=== PATIENT | male | born 1950 | race Caucasian/White ===

== ENCOUNTER → 2019-11-23 09:17 | Outpatient (CLI) | payer MEDICARE, OTHER, SELFPAY ==
--- NOTE | 2019-11-23 09:18 | DI.MRI.S_ITS ---
PROCEDURE: MR HEAD/BRAIN WO/W CON INDICATIONS: chronic daily headaches for years TECHNIQUE: Noncontrast axial T1 spin echo, axial T2 fast spin echo, sagittal and axial FLAIR, coronal T2 fast spin echo, axial gradient echo, axial diffusion and ADC through the brain. After the administration of contrast, axial and coronal 3D VIBE or T1 spin echo with fat saturation through the brain. COMPARISON: None. FINDINGS: Image quality: Excellent. CSF Spaces: Basal cisterns are patent. No extra-axial fluid collections. Ventricles are normal in size and shape. Brain: No midline shift. No intracranial bleeds or masses. No abnormal intracranial enhancement. The brainstem appears normal. Diffusion-weighted images demonstrate no acute ischemic insults. No chronic ischemic insults. Normal intravascular flow voids are present. Skull and face: Calvarial marrow is normal in signal. Orbits appear normal. Sinuses: Sinuses and mastoids appear clear. IMPRESSION: Mild microvascular atherosclerotic change in the deep white matter of each hemisphere but no evidence of mass, aneurysm, vascular malformation or prior stroke is found. Source of recurrent headaches is not identified. Dictated by: Joesph Gill M.D. on 11/23/2019 at 10:23 Approved by: Joesph Gill M.D. on 11/23/2019 at 10:25
== END ==
PROVIDERS: Family Provider Family Medicine; PCP Family Medicine; Visit Provider Family Medicine
DX: R51 Headache (principal)
CPT/HCPCS: 70553; A9579

== ENCOUNTER → 2022-04-03 07:53 | Outpatient (CLI) | payer MEDICARE, OTHER, SELFPAY ==
--- NOTE | 2022-04-23 09:11 | PM.CARDMON.1 ---
Community Education Coordinator Report Referral & Results Date Patient Seen: 04/03/22 Requesting provider: Yordan Bauer Indication: Palpitations Duration of monitoring (days): 14 Diary information: There were no patient events to review Data: Minimum heart rate identified was 30 beats per minute at 00:22 on 04/12/2022 Maximum sinus heart rate was 151 beats per minute at 15:04 on 04/07/2022 Maximum overall heart rate was 179 beats per minute at 16:47 on 04/09/2022 during a run of SVT Less than 1% of identified beats were ventricular or supraventricular ectopic in origin, which would classify them as rare. There were 30 runs of SVT with the fastest being 6 beat run as noted above, the longest was 17.3 seconds in duration There was 1 run of nonsustained monomorphic ventricular tachycardia that was 5 beats in duration at a rate of 126 beats per minute There were no pauses of 3 seconds or longer or episodes of atrial fibrillation identified on this study Impression: 14 day phototypesetting equipment monitor showing rare ectopy as well as rare brief runs of SVT as above and the single run of VT No symptoms reported to correlate with sense of palpitations Clinical correlation suggested
== END ==
PROVIDERS: Family Provider Family Medicine; PCP Family Medicine; Referring Provider Family Medicine; Visit Provider Family Medicine
DX: R00.2 Palpitations (principal)
CPT/HCPCS: 93246; 93248

== ENCOUNTER 2022-04-23 22:02 | Emergency (ER) | payer MEDICARE, OTHER, SELFPAY ==
[2022-04-23 22:10] VITALS: BP 126/90; PULSE 132; RESP 18; TEMP 36.5; O2SAT 99; BMI 27.8
[2022-04-23 22:12] VITALS: PULSE 131; RESP 21; O2SAT 99
[2022-04-23 22:17] VITALS: BP 161/92; PULSE 136; RESP 20; O2SAT 99
--- NOTE | 2022-04-23 22:18 | ED.ARRPALP ---
HPI - Arrhythmia/Palpitations General Chief Complaint: Arrhythmia/Palpitations Stated Complaint: states a fib Time Seen by Provider: 04/23/22 22:11 Source: patient Mode of arrival: Ambulatory History of Present Illness HPI narrative: [age] year old male who has had issues with palpitations in the past. Has had a Holter monitor. There was strong concern that he was having episodes of atrial fibrillation but there was no documented arrhythmias with this. He stated that he started to have a fast heart rate just over an hour ago. He denies chest pain, shortness of breath, lightheadedness. He states that he normally has episodes like this and he will either try some deep breathing ago for brisk walk or climb up and down some stairs and at resolves. Today it did seem to last longer than normal and he would like to come in for an EKG to document the rhythm that he is in. Related Data Home Medications Medication Instructions Recorded Confirmed VITAMIN D (Vitamin D3) 2,000 units PO QDAY ##0 10/14/17 01/19/20 siawnmz-eluzmqkxogjyh-fvzedrgg 250 tab PO PRN PRN ##0 10/14/17 01/19/20 mg-250 mg-65 mg tablet (Excedrin Extra Strength) multivitamin (Multiple Vitamins 1 tab PO QDAY ##0 10/14/17 01/19/20 tablet) omega 6-hqq-vhi-fish oil 1,000 mg 1,200 mg PO QDAY ##0 10/14/17 01/19/20 (120 mg-180 mg) capsule (Fish Oil) levothyroxine 25 mcg capsule 25 mcg PO DAILY 08/04/19 01/19/20 omeprazole 20 mg capsule,delayed 20 mg PO DAILY 08/04/19 01/19/20 release [facility] PO BID 08/04/19 01/19/20 Previous Rx's Medication Instructions Recorded sumatriptan succinate 100 mg tablet 100 mg PO .COMPLEX PRN migraine 06/14/19 headache #18 tabs naratriptan 2.5 mg tablet 2.5 mg PO .COMPLEX PRN migraine 07/20/19 headache #18 tabs naratriptan 2.5 mg tablet See Rx Instructions PO .COMPLEX 08/04/19 #14 tabs sumatriptan succinate 100 mg tablet See Rx Instructions PO .COMPLEX 08/04/19 #14 tabs naratriptan 2.5 mg tablet 2.5 mg PO Q4H PRN migraine 11/17/19 headache #45 tabs sumatriptan succinate 100 mg tablet 100 mg PO Q2-4H PRN migraine 11/17/19 headache 2 doses #45 tabs naratriptan 2.5 mg tablet 2.5 mg PO Q4H PRN migraine 01/19/20 headache #30 tabs sumatriptan succinate 100 mg tablet 100 mg PO Q2-4H PRN migraine 01/19/20 headache 2 doses #30 tabs ubrogepant 50 mg tablet 50 mg PO ONCE #10 tabs 01/19/20 Allergies Allergy/AdvReac Type Severity Reaction Status Date / Time No Known Drug Allergies Allergy Verified 11/17/19 09:02 Review of Systems Constitutional Constitutional: Reports system reviewed and no additional complaints, except as documented Cardiovascular Cardiovascular: Denies chest pain at rest, Reports rapid heart rate, Reports irregular heart rhythm and Denies dyspnea Respiratory Respiratory: Denies cough and Denies dyspnea Gastrointestinal Gastrointestinal: Reports system reviewed and no additional complaints, except as documented Integumentary/Breasts Skin/Breast: Reports system reviewed and no additional complaints, except as documented Neurologic Neurologic: Reports system reviewed and no additional complaints, except as documented Hematologic/Lymphatic On Anticoagulants: No Patient History Medical History Headache, chronic daily Umbilical hernia without mention of obstruction or gangrene Surgical History (Updated 11/17/19 @ 09:03 by Kate Martinez) History of cataract surgery History of hernia repair Family History (Updated 11/17/19 @ 09:05 by Kate Martinez) Brother Cancer Mother Dementia Social History Smoking Status: Never smoker Smoking Status: Never smoker alcohol intake frequency: 0-2 drinks per day Substance Use Type: does not use Exam Initial Vital Signs Initial Vital Signs: Vital Signs Temperature 97.7 F 04/23/22 22:10 Pulse Rate 132 H 04/23/22 22:10 Respiratory Rate 18 04/23/22 22:10 Blood Pressure 126/90 04/23/22 22:10 Pulse Oximetry 99 04/23/22 22:10 Oxygen Delivery Method 04/23/22 22:10 Const General: cooperative, comfortable, well developed, well groomed and No ill appearing HENW[place] Head: normal to inspection and normocephalic Resp Effort & Inspection: normal respiratory effort Auscultation: clear to auscultation bilaterally, no rhonchi and no wheezes Cardio Rate: tachycardic Rhythm: abnormal rhythm GI Inspection: normal to inspection Neuro General: patient alert, patient awake, patient oriented x3 and moves all extremities Extrem General: No edema Psych Appearance: grossly normal Course Orders Ordered: ED Orders 04/23/22 22:13 Basic Metabolic Panel Stat COVID19 -Nasal RAPID/Pre-Proc Stat Complete Blood Count AUTO DIFF Stat Magnesium Stat Thyroid Stimulating Hormone Stat EKG-12 Lead Stat 04/23/22 22:53 EKG-12 Lead Stat 04/23/22 22:54 EKG-12 Lead Stat Discontinued Medications Metoprolol Tartrate (Metoprolol Tartrate 5 Mg/5 Ml Inj) 5 mg IV NOW ONE Stop: 04/23/22 22:19 Last Admin: 04/23/22 22:27 Dose: 5 mg Documented By: LETY Vital Signs Vital signs: Vital Signs - 8 hr 04/23/22 22:10 04/23/22 22:12 04/23/22 22:17 Temperature 97.7 F Pulse Rate 132 H 131 H 136 H Respiratory Rate 18 21 20 Blood Pressure 126/90 Pulse Oximetry 99 99 99 Oxygen Delivery Method Room Air 04/23/22 22:17 04/23/22 22:30 04/23/22 22:30 Temperature Pulse Rate 113 H Respiratory Rate 9 L Blood Pressure 161/92 H 147/75 H Pulse Oximetry 97 Oxygen Delivery Method 04/23/22 23:00 04/23/22 23:01 04/23/22 23:01 Temperature Pulse Rate 54 L 54 L Respiratory Rate 25 H 26 H Blood Pressure 151/91 H Pulse Oximetry 96 97 Oxygen Delivery Method Room Air MDM - Arrhythmia/Palpitations Medical Records Attestation: I reviewed the patient's medical records. Lab Data Attestation: I reviewed the patient's lab results. Result diagrams: 04/23/22 22:13 04/23/22 22:13 Labs: Lab Results 04/23/22 04/23/22 04/23/22 Range/Units 22:13 22:13 22:13 WBC 6.8 (4.5-11.0) X10^3/uL RBC 4.63 (4.5-5.9) X10^6/uL Hgb 14.0 (13.5-17.5) g/dL Hct 40.0 L (41-53) % MCV 86.5 (80-100) fL MCH 30.3 (26-34) PG MCHC 35.0 (30-36) % RDW 13.3 (11.6-14.8) % Plt Count 212 (150-400) X10^3/uL Neut % (Auto) 56.9 (50-75) % Lymph % (Auto) 29.4 (25-40) % [place] % (Auto) 8.9 (3-14) % Eos % (Auto) 3.6 (2-4) % Baso % (Auto) 1.2 (0-2) % Neut # (Auto) 3900 (4319-9474) /uL Lymph # (Auto) 2000 (2783-5686) /uL [place] # (Auto) 600 (0-900) /uL Eos # (Auto) 200 (0-450) /uL Baso # (Auto) 100 (0-100) /uL Sodium 139 (137-145) mmol/L Potassium 3.8 (3.4-5.1) mmol/L Chloride 103 (98-107) mmol/L Carbon Dioxide 29 (22-32) mmol/L BUN 16 (9-20) mg/dL Creatinine 0.85 (0.66-1.25) mg/dL Estimated GFR > 60 (>60) mL/min BUN/Creatinine Ratio 18.8 (6-22) Glucose 134 H (80-110) mg/dL Calcium 9.0 (8.4-10.2) mg/dL Magnesium 2.2 (1.6-2.3) mg/dL TSH 2.19 (0.47-4.68) uIU/mL SARS-CoV-2 (PCR) (Negative) 04/23/22 Range/Units 22:13 WBC (4.5-11.0) X10^3/uL RBC (4.5-5.9) X10^6/uL Hgb (13.5-17.5) g/dL Hct (41-53) % MCV (80-100) fL MCH (26-34) PG MCHC (30-36) % RDW (11.6-14.8) % Plt Count (150-400) X10^3/uL Neut % (Auto) (50-75) % Lymph % (Auto) (25-40) % [place] % (Auto) (3-14) % Eos % (Auto) (2-4) % Baso % (Auto) (0-2) % Neut # (Auto) (6094-7992) /uL Lymph # (Auto) (9287-6768) /uL [place] # (Auto) (0-900) /uL Eos # (Auto) (0-450) /uL Baso # (Auto) (0-100) /uL Sodium (137-145) mmol/L Potassium (3.4-5.1) mmol/L Chloride (98-107) mmol/L Carbon Dioxide (22-32) mmol/L BUN (9-20) mg/dL Creatinine (0.66-1.25) mg/dL Estimated GFR (>60) mL/min BUN/Creatinine Ratio (6-22) Glucose (80-110) mg/dL Calcium (8.4-10.2) mg/dL Magnesium (1.6-2.3) mg/dL TSH (0.47-4.68) uIU/mL SARS-CoV-2 (PCR) Negative (Negative) ECG Data Attestation: I personally reviewed and interpreted this ECG as follows: Interpretation: Atrial fibrillation Rapid ventricular response with a rate of 126 Normal axis Normal QRS No ST T wave changes Post cardioversion EKG Sinus bradycardia Ventricular rate of 54 Normal axis Normal QRS Normal QTC LDH No ST T wave changes MDM Narrative Medical decision making narrative: Patient arrives with stable atrial fibrillation. And discussion with him regarding options to include rate control versus rhythm control. The patient stated that he would like to actually wait to see if he would convert on his own as this has been his pattern in the past. He was agreeable to 1 dose of medication to see if this improved his palpitations. He was given metoprolol and after short period of time patient converted to sinus rhythm. Patient states that his heart rate is normally in the 50s or 60s. He is no longer symptomatic. He states these events only occur rarely meaning once every other month or so. Advised him that he should contact his primary doctor for follow-up. He was given return precautions. Expressed understanding and agreement. Discharge Plan Departure Patient Disposition: Home Clinical Impression: Atrial fibrillation Instructions: DI for Atrial Fibrillation Activity Restrictions/Additional Instructions: I do recommend that you contact your primary doctor for a follow-up. Return to the emergency department for any new or worsening symptoms like we discussed. Prescriptions: No Action multivitamin [Multiple Vitamins] 1 EACH tablet 1 tab PO QDAY Qty: 0 raauvpj-lkvmrciztowbv-ykyjnlzo [Excedrin Extra Strength] 1 EACH tablet PO PRN PRNQty: 0 omega 8-bmr-myd-fish oil [Fish Oil] 1,000 MG capsule 1,200 mg PO QDAY Qty: 0 VITAMIN D (Vitamin D3) 2,000 units PO QDAY Qty: 0 sumatriptan succinate 100 mg tablet 100 mg PO .COMPLEX PRN (Reason: migraine headache) Qty: 18 1RF Rx Instructions: 100 mg PO 1 at onset, may repeat after 2 hours. PRN; naratriptan 2.5 mg tablet 2.5 mg PO .COMPLEX PRN (Reason: migraine headache) Qty: 18 1RF Rx Instructions: 2.5 mg PO 1 at onset, may repeat after 2 hours. PRN; levothyroxine 25 mcg capsule 25 mcg PO DAILY omeprazole 20 mg capsule,delayed release(DR/EC) 20 mg PO DAILY [facility] PO BID naratriptan 2.5 mg tablet See Rx Instructions PO .COMPLEX Qty: 14 5RF Rx Instructions: take 1 tab at onset of headache; if no relief may repeat 1 tab in 4hr; max = 2 tabs/24 hrs PO sumatriptan succinate 100 mg tablet See Rx Instructions PO .COMPLEX Qty: 14 5RF Rx Instructions: take 1 tab at onset of headache; if no relief may repeat 1 tab in 2hr; max = 2 tabs/24 hrs PO naratriptan 2.5 mg tablet 2.5 mg PO Q4H PRN (Reason: migraine headache) Qty: 45 1RF Rx Instructions: until response; not to exceed 2 doses in a 24 hour period sumatriptan succinate 100 mg tablet 100 mg PO Q2-4H PRN (Reason: migraine headache) Qty: 45 1RF naratriptan 2.5 mg tablet 2.5 mg PO Q4H PRN (Reason: migraine headache) Qty: 30 2RF Rx Instructions: do not exceed 2 doses per 24 hrs sumatriptan succinate 100 mg tablet 100 mg PO Q2-4H PRN (Reason: migraine headache) Qty: 30 2RF Rx Instructions: do not exceed 2 doses per 24 hrs ubrogepant 50 mg tablet 50 mg PO ONCE Qty: 10 2RF Rx Instructions: as a single dose Referrals: Yordan Bauer MD [Primary Care Provider] - Visit Report Forms: Patient Portal/API
[2022-04-23 22:26] LABS: Add Manual Diff / Slide Review NO; Basophils Absolute Auto 100 /uL (0-100); Basophils Percent Auto 1.2 % (0-2); Eosinophils Absolute Auto 200 /uL (0-450); Eosinophils Percent Auto 3.6 % (2-4); Lymphocytes Absolute Auto 2000 /uL (1100-4500); Lymphocytes Percent Auto 29.4 % (25-40); Mean Corpuscular Hemoglobin 30.3 PG (26-34); Mean Corpuscular Volume 86.5 fL (80-100); Monocytes Absolute Auto 600 /uL (0-900); Monocytes Percent Auto 8.9 % (3-14); Neutrophils Absolute Auto 3900 /uL (1500-7000); Neutrophils Percent Auto 56.9 % (50-75); Platelet Count 212 X10^3/uL (150-400); Red Blood Cell Count 4.63 X10^6/uL (4.5-5.9); Red Cell Distribution Width 13.3 % (11.6-14.8); White Blood Cell Count 6.8 X10^3/uL (4.5-11.0)
[2022-04-23] MEDS: METOPROLOL TARTRATE 5 MG/5 ML INJ IV (22:27)
[2022-04-23 22:30] VITALS: BP 147/75; PULSE 113; RESP 9; O2SAT 97
[2022-04-23 22:44] LABS: COVID19 -Nasal RAPID Negative (Negative)
--- NOTE | 2022-04-23 22:44 | PC.NURSE ---
2242 pt converted to SR rate 52
[2022-04-23 22:55] LABS: BUN Creatinine Ratio 18.8 (6-22); Blood Urea Nitrogen 16 mg/dL (9-20); Carbon Dioxide 29 mmol/L (22-32); Chloride 103 mmol/L (98-107); Estimated Glomerular Filt Rate > 60 mL/min (>60); Glucose 134 mg/dL (80-110); HEMOLYSIS 16 (0-50); Magnesium 2.2 mg/dL (1.6-2.3); Potassium 3.8 mmol/L (3.4-5.1); Sodium 139 mmol/L (137-145)
[2022-04-23 23:00] VITALS: PULSE 54; RESP 25; O2SAT 96
[2022-04-23 23:01] VITALS: BP 151/91; PULSE 54; RESP 26; O2SAT 97
[2022-04-24 00:06] LABS: Thyroid Stimulating Hormone 2.19 uIU/mL (0.47-4.68)
== END 2022-04-23 23:12 | disposition home or self-care (01) ==
PROVIDERS: Emergency Provider Emergency Medicine; Family Provider Family Medicine; PCP Family Medicine
DX: I48.91 Unspecified atrial fibrillation (principal); Z20.822 Contact with and (suspected) exposure to COVID-19
CPT/HCPCS: 36415; 80048; 83735; 84443; 85025; 87635; 93005; 93010; 96374; 99284; C9803

== ENCOUNTER → 2022-07-16 08:05 | Outpatient (CLI) | payer MEDICARE, OTHER, SELFPAY ==
--- NOTE | 2022-07-16 08:07 | DI.ECHO.S_ITS ---
[facility] +---------+ : : [address] : : : : [id number] : : : : Phone: [phone]+ Echocardiogram Report + + :Name: DINH LOPEZ Study Date: 07/16/2022 Height: 71 in : :[facility] ReadingLocation: Weight: 195 lb : : Gender: Male BSA: 2.1 m2 : :: 1950 Age: 72 yrs BP: 156/93 mmHg: :Reason For Study: ATRIAL FIBRILLATION : :Ordering Physician: DONOVAN, : :REGGIE Performed By: Emily Quesada : :Referring: REGGIE MAN : + + Interpretation Summary The patient was in sinus bradycardia with heart rates between 48-55 bpm during the exam. The left ventricle is normal in size. There is mild concentric left ventricular hypertrophy. The ejection fraction is estimated to be 55-60%. The right ventricle is normal in size and function. There is mild mitral regurgitation. The ascending aorta is mild-moderately enlarged. 4.3 cm in diameter. Procedure: A two-dimensional transthoracic echocardiogram with color flow and Doppler was performed. The study quality was technically adequate. There is no prior echocardiogram noted for this patient. The patient was in sinus bradycardia with heart rates between 48-55 bpm during the exam. Left Ventricle: The left ventricle is normal in size. There is mild concentric left ventricular hypertrophy. There is no thrombus. The ejection fraction is estimated to be 55-60%. There are no focal wall motion abnormalities. Diastolic parameters suggest a relaxation abnormality of the left ventricle, consistent with probable normal filling pressures. Right Ventricle: The right ventricle is normal in size and function. Atria: The left atrium is mildly dilated. Right atrial size is normal. There is no Doppler evidence for an interatrial shunt. Mitral Valve: The mitral valve leaflets are slightly calcified. There is mild mitral regurgitation. Aortic Valve: The aortic valve is trileaflet. The aortic valve opens well. There is no aortic valve stenosis. No aortic regurgitation is present. Tricuspid Valve: The tricuspid valve is normal in structure and function. There is trace tricuspid regurgitation. Right ventricular systolic pressure is estimated to be 26 mmHg plus the clinically estimated CVP which cannot be estimated on this exam. Pulmonic Valve: The pulmonic valve is not well seen, but is grossly normal. There is trace pulmonic regurgitation. Great Vessels: The aortic root is normal size. The ascending aorta is mild- moderately enlarged. The inferior vena cava was not well visualized. Pericardium/ Pleura There is no pericardial effusion. There is an anterior echo-free space consistent with a fat pad. There is no pleural effusion. MMode/2D Measurements & Calculations LVIDd: 4.5 cm LVOT diam: 2.0 cm LVIDs: 3.1 cm Ao root diam: 3.6 cm FS: 31.3 % asc Aorta Diam: 4.3 cm EPSS: 1.1 cm Ao Arch Diam (Prox Trans): 3.6 cm IVSd: 1.1 cm LVPWd: 0.86 cm LV dominguez. diameter/BSA (cm/m^2): 2.1 LV sys. diameter/BSA (cm/m^2): 1.5 LA A2 area: 26.0 cm2 RA long axis: 5.0 cm LA A4 area: 20.4 cm2 RA area: 17.9 cm2 LA length (vol): 5.5 cm RA vol: 53.9 ml LA vol: 81.9 ml RA : 25.8 ml/m2 LA vol index: 39.2 ml/m2 RVD1 (basal): 3.5 cm RVD2 (mid): 3.4 cm TAPSE: 1.8 cm Doppler Measurements & Calculations Ao V2 max: 123.5 cm/sec LVOT Max Sean: 123.0 cm/sec Ao V2 mean: 86.9 cm/sec LV V1 max P.1 mmHg Ao max P.1 mmHg LV V1 VTI: 29.4 cm Ao mean P.3 mmHg LYNETTE(I,D): 3.0 cm2 Ao V2 VTI: 30.8 cm LYNETTE(V,D): 3.1 cm2 sev ratio: 0.96 LYNETTE indexed to BSA (cm^2/m^2): 1.4 MV E max sean: 83.4 cm/sec TR max sean: 252.4 cm/sec MV A max sean: 89.2 cm/sec TR max P.5 mmHg MV E/A: 0.94 PA V2 max: 151.6 cm/sec Med Peak E' Sean: 9.2 cm/sec PA V2 mean: 92.8 cm/sec E/E' med: 9.1 PA mean P.1 mmHg Lat Peak E' Sean: 10.4 cm/sec PA pr(Accel): 20.8 mmHg E/E' lat: 8.0 E/e' average: 8.5 MV dec time: 0.19 sec SV(LVOT): 92.8 ml Reading Physician:02:00 PM
== END ==
PROVIDERS: Family Provider Family Medicine; PCP Family Medicine; Referring Provider Family Medicine; Visit Provider Family Medicine
DX: I48.91 Unspecified atrial fibrillation (principal); R00.1 Bradycardia, unspecified; I77.89 Other specified disorders of arteries and arterioles
CPT/HCPCS: 93306

== ENCOUNTER → 2022-10-13 06:48 | Outpatient (CLI) | payer MEDICARE, OTHER, SELFPAY ==
--- NOTE | 2022-10-13 06:50 | DI.US.S_ITS ---
PROCEDURE: US ABD AORTA ANEURYSM SCREEN INDICATIONS: Screening for cardiovascular disorder TECHNIQUE: Real time scanning was performed of the aorta and iliac arteries, with image documentation. COMPARISON: None. FINDINGS: Aorta: Proximal aortic diameter measures 2.9 cm. Mid-aorta measures 2.7 cm. Distal aortic diameter is 2.4 cm. Iliac arteries: Right common iliac artery measures 1.3 cm. Left common iliac artery measures 1.4 cm. IMPRESSION: No aneurysmal dilation. Dictated by: Emma Sanchez M.D. on 10/13/2022 at 11:34 Approved by: Emma Sanchez M.D. on 10/13/2022 at 11:34
== END ==
PROVIDERS: Family Provider Family Medicine; PCP Family Medicine; Referring Provider Family Medicine; Visit Provider Family Medicine
DX: Z13.6 Encounter for screening for cardiovascular disorders (principal)
CPT/HCPCS: 76706

== ENCOUNTER → 2023-11-23 08:56 | Outpatient (CLI) | payer MEDICARE, BC, SELFPAY ==
--- NOTE | 2023-11-23 | DI.CT.S_ITS ---
PROCEDURE: CT ABDOMEN PELVIS W CON INDICATIONS: EPIGASTRIC PAIN TECHNIQUE: After the administration of intravenous contrast, axial sections acquired from the lung bases to the pubic symphysis. Coronal and sagittal reformats were performed. For radiation dose reduction, the following was used: automated exposure control, adjustment of mA and/or kV according to patient size. COMPARISON: None. FINDINGS: Image quality: Diagnostic. Lower Chest: There is a 0.7 cm nodule in the right middle lobe (series 3 image 2). A 3 mm nodule is seen in the left lower lobe series 3 image 4). Small hiatal hernia. ABDOMEN: Liver: No solid mass. There is mild hepatic steatosis. Gallbladder: No radiopaque gallstones or wall thickening. Biliary ducts: No biliary dilation. Pancreas: No ductal dilation. Spleen: Size is within normal limits. Adrenal Glands: No adrenal nodules. Kidneys and Ureters: No hydronephrosis. No solid mass. No complex renal cystic lesion which requires follow up. Stomach and Bowel: There may be gastric antral thickening but stomach is not fully distended. Normal colonic caliber, without significant wall thickening. Diverticulosis without diverticulitis. Peritoneum: No abnormal intraperitoneal fluid. No free air. Ventral Wall: No hernia. Abdominal Nodes: No retroperitoneal or mesenteric adenopathy by size criteria. Vessels: Aorta and inferior vena cava are normal in size. PELVIS: Pelvic Organs: Prostate is enlarged.. Bladder: Unremarkable. Pelvic Nodes: No enlarged lymph nodes. Miscellaneous: No inguinal hernias are seen. Bones: No aggressive osseous abnormality. Moderate degenerative disc and facet disease at L5-S1. A sclerotic focus in the left ischium is most likely a small bone island. IMPRESSION: 1. Question gastric antral thickening. A differential diagnosis is inadequate distension. 2. Mild hepatic steatosis. 3. Diverticulosis without diverticulitis. 4. Small lung nodules at lung bases. Recommend a chest CT for follow-up evaluation. Dictated by: Johana Funk M.D. on 11/23/2023 at 14:13 Approved by: Johana Funk M.D. on 11/23/2023 at 14:19
== END ==
PROVIDERS: Family Provider Family Medicine; PCP Family Medicine; Referring Provider Family Medicine; Visit Provider Family Medicine
DX: K76.0 Fatty (change of) liver, not elsewhere classified (principal); K57.90 Diverticulosis of intestine, part unspecified, without perforation or abscess without bleeding; R10.13 Epigastric pain; R91.8 Other nonspecific abnormal finding of lung field; K44.9 Diaphragmatic hernia without obstruction or gangrene
CPT/HCPCS: 74177; Q9967

== ENCOUNTER 2024-04-29 03:16 | Emergency (ER) | payer MEDICARE, BC, SELFPAY ==
[2024-04-29] VITALS (8 sets, daily range): BP systolic 92–123; BP diastolic 53–74; PULSE 51–71; RESP 12–19; TEMP 36.4–36.8; O2SAT 94–100; BMI 59.9
--- NOTE | 2024-04-29 03:36 | EKG_ITS ---
[facility] [address] [address] [address], [place] [address] Test Date: 2024-04-29 Pat Name: Isra Elliott Department: Room: Gender: Male Pen Tender: SYLVESTER : 1950 Requested By: Order Number: [id number] Reading MD: Adalid Martinez Measurements Intervals [place] Rate: 60 P: HI: QRS: -4 QRSD: 86 T: 5 QT: 398 QTc: 398 Interpretive Statements atrial fibrillation Electronically Signed On 04-29-2024 16:21:25 PDT by Adalid Martinez
--- NOTE | 2024-04-29 03:57 | ED_ITS ---
HPI - Abdominal Pain General Chief Complaint: Abdominal Pain Stated Complaint: abd pain Time Seen by Provider: 04/29/24 03:55 Source: patient Mode of arrival: Ambulatory Limitations: no limitations History of Present Illness HPI narrative: 74-year-old male history of chronic abdominal, migraines, atrial fibrillation, hypothyroidism presents with complaint epigastric upper abdominal pain that radiates to both scapulas. Patient states that this has been going on for some time episodic but has become more more frequent over time. He states typically last 7-8 hours. He states he has not had any fevers or chills, no chest pain or shortness of breath. No nausea or vomiting. No issues with bowel movements no issues with urination. He states he is stooling regularly. He did have an EGD and colonoscopy earlier in the day on 04/28 at 4:30 a.m. in the afternoon. He states he tolerated that well and felt fine until 130 this morning. States the only thing that seems to help his symptoms as when he holds himself and a plank position. He did take several tablets of antacids and Pepto-Bismol without any improvement at home. He has been following with his regular doctor he has had an MRA to rule out aneurysm, and then had an EGD and colonoscopy earlier in the day. Was found to have a tumor body still as well as cecal polyps that were 7 mm and 5 mm and diverticulosis. Patient states no other surgeries besides cataract umbilical hernia 2015. No drug allergies. No tobacco, alcohol or recreational drugs. Patient's primary care physician is Dr. Bauer. He presented with his summary from his colonoscopy and EGD. Patient's was noted to be AFib or went into AFib during his scope. He was rate controlled and asymptomatic and encouraged to continue his metoprolol. Related Data Home Medications Medication Instructions Recorded Confirmed VITAMIN D (Vitamin D3) 2,000 units PO QDAY ##0 10/14/17 01/19/20 qsefpyo-pbzjhmwznwptf-uhqbidux 250 tab PO PRN PRN ##0 10/14/17 01/19/20 mg-250 mg-65 mg tablet (Excedrin Extra Strength) multivitamin (Multiple Vitamins 1 tab PO QDAY ##0 10/14/17 01/19/20 tablet) omega 8-pou-ntd-fish oil 1,000 mg 1,200 mg PO QDAY ##0 10/14/17 01/19/20 (120 mg-180 mg) capsule (Fish Oil) levothyroxine 25 mcg capsule 25 mcg PO DAILY 08/04/19 01/19/20 omeprazole 20 mg capsule,delayed 20 mg PO DAILY 08/04/19 01/19/20 release [facility] PO BID 08/04/19 01/19/20 Previous Rx's Medication Instructions Recorded sumatriptan succinate 100 mg tablet 100 mg PO .COMPLEX PRN migraine 06/14/19 headache #18 tabs naratriptan 2.5 mg tablet 2.5 mg PO .COMPLEX PRN migraine 07/20/19 headache #18 tabs naratriptan 2.5 mg tablet See Rx Instructions PO .COMPLEX 08/04/19 #14 tabs sumatriptan succinate 100 mg tablet See Rx Instructions PO .COMPLEX 08/04/19 #14 tabs naratriptan 2.5 mg tablet 2.5 mg PO Q4H PRN migraine 11/17/19 headache #45 tabs sumatriptan succinate 100 mg tablet 100 mg PO Q2-4H PRN migraine 11/17/19 headache 2 doses #45 tabs naratriptan 2.5 mg tablet 2.5 mg PO Q4H PRN migraine 01/19/20 headache #30 tabs sumatriptan succinate 100 mg tablet 100 mg PO Q2-4H PRN migraine 01/19/20 headache 2 doses #30 tabs ubrogepant 50 mg tablet 50 mg PO ONCE #10 tabs 01/19/20 Allergies Allergy/AdvReac Type Severity Reaction Status Date / Time No Known Drug Allergies Allergy Verified 11/17/19 09:02 Review of Systems Review of Systems ROS Unobtainable: All systems reviewed & are unremarkable except as noted in HPI and below Patient History Medical History Headache, chronic daily Umbilical hernia without mention of obstruction or gangrene Surgical History History of hernia repair History of cataract surgery Family History Brother Cancer Mother Dementia Social History Smoking Status: Never smoker Smoking Status: Never smoker alcohol intake frequency: 0-2 drinks per day Substance Use Type: does not use Exam Narrative Exam Narrative: GENERAL: Alert and oriented x three, well-appearing male in mild distress. HEENT: Head normocephalic, atraumatic, EOMI, pupils reactive, face symmetric, moist mucous membranes NECK: Supple, full range of motion CARDIOVASCULAR: Regular rate and rhythm without murmurs, rubs or gallops. RESPIRATORY: Breath sounds equal bilaterally, no wheezes rales or rhonchi. ABDOMEN: Soft, nontender on examination. I am not able to increase or reproduce his pain. Non-distended. Normoactive bowel sounds all 4 quadrants. No guarding or rebound, rigidity, no mass : No CVA tenderness EXTREMITIES: Normal range of motion, no clubbing or edema. Neurovascularly intact NEUROLOGICAL: Cranial nerves II through XII grossly intact. Moving all extremities SKIN: Warm, dry, no petechiae, no rashes or lesions. Initial Vital Signs Initial Vital Signs: Vital Signs Pulse Rate 62 04/29/24 03:24 Respiratory Rate 14 04/29/24 03:24 Blood Pressure 92/53 L 04/29/24 03:24 Pulse Oximetry 94 04/29/24 03:24 Course Orders Ordered: ED Orders 04/29/24 03:36 EKG-12 Lead Stat 04/29/24 03:45 Complete Blood Count AUTO DIFF Stat Comprehensive Metabolic Panel Stat Lipase Stat Troponin & CK Cardiac Panel Stat 04/29/24 04:09 CT abdomen pelvis w con Stat Discontinued Medications Al Hydrox/Mg Hydrox/Simethicone 20 ml/ Lidocaine HCl 15 ml 0 ml PO NOW ONE Stop: 04/29/24 04:09 Last Admin: 04/29/24 04:27 Dose: 35 ml Documented By: JULY Ondansetron HCl (Ondansetron 4 Mg/2 Ml Inj) 4 mg IV NOW PRN PRN Reason: Nausea And Vomiting Ondansetron HCl (Ondansetron 4 Mg Odt) 4 mg PO NOW PRN PRN Reason: Nausea And Vomiting Pantoprazole Sodium (Pantoprazole 40 Mg Vial) 40 mg IV NOW ONE Stop: 04/29/24 04:09 Last Admin: 04/29/24 04:28 Dose: 40 mg Documented By: JULY Vital Signs Vital signs: Vital Signs - 8 hr 04/29/24 03:24 04/29/24 03:24 04/29/24 03:25 Temperature 98.3 F Pulse Rate 62 56 L Respiratory Rate 14 12 Blood Pressure 92/53 L 92/53 L Pulse Oximetry 94 99 Oxygen Delivery Method Room Air 04/29/24 03:30 04/29/24 04:00 04/29/24 04:38 Temperature Pulse Rate 63 71 62 Respiratory Rate 13 19 Blood Pressure Pulse Oximetry 99 100 99 Oxygen Delivery Method 04/29/24 04:38 04/29/24 05:00 04/29/24 05:00 Temperature Pulse Rate 58 L Respiratory Rate Blood Pressure 123/74 112/64 Pulse Oximetry 97 Oxygen Delivery Method 04/29/24 05:30 04/29/24 05:30 04/29/24 06:08 Temperature 97.6 F Pulse Rate 51 L Respiratory Rate Blood Pressure 109/69 Pulse Oximetry 100 Oxygen Delivery Method MDM - Abdominal Pain Lab Data 04/29/24 03:45 04/29/24 03:45 Labs: Lab Results 04/29/24 Range/Units 03:45 WBC 6.7 (4.5-11.0) X10^3/uL RBC 4.35 L (4.5-5.9) X10^6/uL Hgb 13.1 L (13.5-17.5) g/dL Hct 38.3 L (41-53) % MCV 87.9 (80-100) fL MCH 30.0 (26-34) PG MCHC 34.2 (30-36) % RDW 13.6 (11.6-14.8) % Plt Count 194 (150-400) X10^3/uL Neut % (Auto) 66.0 (50-75) % Lymph % (Auto) 22.7 L (25-40) % Mcpherson % (Auto) 8.3 (3-14) % Eos % (Auto) 2.5 (2-4) % Baso % (Auto) 0.5 (0-2) % Neut # (Auto) 4400 (7022-1969) /uL Lymph # (Auto) 1500 (1138-4193) /uL Mcpherson # (Auto) 600 (0-900) /uL Eos # (Auto) 200 (0-450) /uL Baso # (Auto) 0 (0-100) /uL Sodium 138 (137-145) mmol/L Potassium 3.9 (3.4-5.1) mmol/L Chloride 107 (98-107) mmol/L Carbon Dioxide 30 (22-32) mmol/L BUN 18 (9-20) mg/dL Creatinine 0.91 (0.66-1.25) mg/dL Estimated GFR > 60 (>60) mL/min BUN/Creatinine Ratio 19.8 (6-22) Glucose 125 H (80-110) mg/dL Calcium 8.6 (8.4-10.2) mg/dL Total Bilirubin 0.5 (0.2-1.3) mg/dL AST 37 (17-59) IU/L ALT 32 (<50) IU/L Alkaline Phosphatase 68 (38-126) U/L Total Creatine Kinase 180 H (55-170) U/L Troponin I 0.014 (0.01-0.034) ng/mL Total Protein 6.1 L (6.3-8.2) g/dL Albumin 3.7 (3.5-5.0) g/dL Globulin 2.4 (1.7-4.1) g/dL Albumin/Globulin Ratio 1.5 (1.0-2.8) Lipase 147 (23-300) U/L ECG Data Attestation: I personally reviewed and interpreted this ECG as follows: Interpretation: Rib, rate controlled, rate of 60, QRS 86 QTC of 398. No acute ST elevation depression noted. [facility] Narrative Medical decision making narrative: 74-year-old male with recurrent abdominal pain that he describes as episodic. Patient states very similar to prior episodes but he did have an EGD and colonoscopy yesterday. Was found to have erosions of the antrum and body of the stomach as well as 2 cecal polyps that were 5 mm and 7 mm reticulocytes. Patient states very similar kind of epigastric but radiates to shoulder blades. Improved when he has in a plank position. He notes he had an MRA that was negative for aneurysm, he has not a arterial ultrasound and I can see in his imaging that was negative and CT abdomen pelvis showed questionable gastric antral thickening, mild hepatic steatosis and small lung nodules in 2021. Labs white count of 6.7 hemoglobin of 13.1 was 14, 2 years ago, platelets are normal 194. Chemistry shows normal electrolytes glucose of 125, normal renal function BUN, LFTs are negative total CK is 180, troponins 0.014 Patient is in AFib but rate controlled. CT abdomen pelvis: slight biliary sludge and neck of distended gallbladder, metallic foreign body in region of cecum. Patient did have clip placed in cecum for polyp. Spoke with patient, plan for follow up with general surgery. He feels much improved, he states the GI cocktail made his lips and mouth very numb but did not seem to changes pain. He states abdominal pain just sort of resolved over time. Reviewed findings for today. Discharge Plan Departure Patient Disposition: Home Clinical Impression: Abdominal pain Instructions: DI for Abdominal Pain-Adult Activity Restrictions/Additional Instructions: Follow up with General surgery, your imaging today does some sludge and distention of the gallbladder. This could be causing your pain. Call the contact below to set up follow up with General surgery. Avoid fatty foods for the short term. You can take Tylenol up to a 1000 mg every 6 hours as needed for pain. Please return for fevers, new or worsening abdominal back or flank pain, persistent vomiting, lightheadedness or passing out or other new or concerning changes. Prescriptions: No Action multivitamin [Multiple Vitamins] 1 EACH tablet 1 tab PO QDAY Qty: 0 keyevlk-imrippksttddf-gavileti [Excedrin Extra Strength] 1 EACH tablet PO PRN PRNQty: 0 omega 5-ymq-bbi-fish oil [Fish Oil] 1,000 MG capsule 1,200 mg PO QDAY Qty: 0 VITAMIN D (Vitamin D3) 2,000 units PO QDAY Qty: 0 sumatriptan succinate 100 mg tablet 100 mg PO .COMPLEX PRN (Reason: migraine headache) Qty: 18 1RF Rx Instructions: 100 mg PO 1 at onset, may repeat after 2 hours. PRN; naratriptan 2.5 mg tablet 2.5 mg PO .COMPLEX PRN (Reason: migraine headache) Qty: 18 1RF Rx Instructions: 2.5 mg PO 1 at onset, may repeat after 2 hours. PRN; levothyroxine 25 mcg capsule 25 mcg PO DAILY omeprazole 20 mg capsule,delayed release(DR/EC) 20 mg PO DAILY [facility] PO BID naratriptan 2.5 mg tablet See Rx Instructions PO .COMPLEX Qty: 14 5RF Rx Instructions: take 1 tab at onset of headache; if no relief may repeat 1 tab in 4hr; max = 2 tabs/24 hrs PO sumatriptan succinate 100 mg tablet See Rx Instructions PO .COMPLEX Qty: 14 5RF Rx Instructions: take 1 tab at onset of headache; if no relief may repeat 1 tab in 2hr; max = 2 tabs/24 hrs PO naratriptan 2.5 mg tablet 2.5 mg PO Q4H PRN (Reason: migraine headache) Qty: 45 1RF Rx Instructions: until response; not to exceed 2 doses in a 24 hour period sumatriptan succinate 100 mg tablet 100 mg PO Q2-4H PRN (Reason: migraine headache) Qty: 45 1RF naratriptan 2.5 mg tablet 2.5 mg PO Q4H PRN (Reason: migraine headache) Qty: 30 2RF Rx Instructions: do not exceed 2 doses per 24 hrs sumatriptan succinate 100 mg tablet 100 mg PO Q2-4H PRN (Reason: migraine headache) Qty: 30 2RF Rx Instructions: do not exceed 2 doses per 24 hrs ubrogepant 50 mg tablet 50 mg PO ONCE Qty: 10 2RF Rx Instructions: as a single dose Referrals: Maria Elena Patricia MD [Physician] - Yordan Bauer MD [Primary Care Provider] - Stand Alone Forms: Patient Portal/API
[2024-04-29 04:02] LABS: Add Manual Diff / Slide Review NO; Basophils Absolute Auto 0 /uL (0-100); Basophils Percent Auto 0.5 % (0-2); Eosinophils Absolute Auto 200 /uL (0-450); Eosinophils Percent Auto 2.5 % (2-4); Hematocrit 38.3 % (41-53); Hemoglobin 13.1 g/dL (13.5-17.5); Lymphocytes Absolute Auto 1500 /uL (1100-4500); Lymphocytes Percent Auto 22.7 % (25-40); Mean Corpuscular HGB Conc 34.2 % (30-36); Mean Corpuscular Volume 87.9 fL (80-100); Monocytes Absolute Auto 600 /uL (0-900); Monocytes Percent Auto 8.3 % (3-14); Neutrophils Absolute Auto 4400 /uL (1500-7000); Platelet Count 194 X10^3/uL (150-400); Red Blood Cell Count 4.35 X10^6/uL (4.5-5.9); Red Cell Distribution Width 13.6 % (11.6-14.8); White Blood Cell Count 6.7 X10^3/uL (4.5-11.0)
--- NOTE | 2024-04-29 04:09 | DI.CT.S_ITS ---
PROCEDURE: CT ABDOMEN PELVIS W CON INDICATIONS: epigastric pain to scapula, had EGD today TECHNIQUE: After the administration of intravenous contrast, axial sections acquired from the lung bases to the pubic symphysis. Coronal and sagittal reformats were performed. For radiation dose reduction, the following was used: automated exposure control, adjustment of mA and/or kV according to patient size. COMPARISON: [facility], CT, CT ABDOMEN PELVIS W CON, 11/23/2023, 10:14. FINDINGS: Image quality: Diagnostic Lower chest: Possible trace hiatal hernia. Normal heart size. No extraluminal gas at the gastroesophageal junction. Liver: Possible steatosis. No suspicious solid lesion Gallbladder and biliary system: Mildly distended gallbladder. No radiopaque calculi. No biliary ductal dilation Pancreas: No ductal dilation. Remp-jf-kjcsvuma parenchymal atrophy Spleen: Nonenlarged Adrenals: No discrete nodules Kidneys: No solid mass or hydronephrosis Vessels and lymph nodes: The main portal vein is patent. No abdominal aortic aneurysm. No pathologic lymph nodes by size criteria. Bowel and peritoneum: Mildly distended stomach. There is mild gastric wall thickening. No pathologic ascites or small bowel obstruction. The appendix is nondilated Metallic body in the region the cecum is present. Body wall: Small fat containing inguinal hernias Pelvis: The bladder is displaced to the right, as before, the bladder is otherwise unremarkable. This may be due to pelvic lipomatosis or lipoma. Prostate is mildly heterogeneous and not well evaluated on this study Bones: No acute or suspicious osseous finding. There are degenerative changes. IMPRESSION: No extraluminal free air. Mildly distended gallbladder. Consider ultrasound correlation if clinically indicated. Questionable mild gastric wall thickening versus artifact of under distention. EGD was performed. Metallic body in the region of the cecum. Other stable/incidental findings above. No significant discrepancy from the prelim report Dictated by: Tyson Leone M.D. on 04/29/2024 at 8:07 Approved by: Tyson Leone M.D. on 04/29/2024 at 8:13
[2024-04-29 04:14] LABS: Creatine Kinase 180 U/L (55-170)
[2024-04-29 04:15] LABS: Alanine Aminotransferase 32 IU/L (<50); Albumin 3.7 g/dL (3.5-5.0); Albumin Globulin Ratio 1.5 (1.0-2.8); Alkaline Phosphatase 68 U/L (38-126); Aspartate Aminotransferase 37 IU/L (17-59); BUN Creatinine Ratio 19.8 (6-22); Bilirubin Total 0.5 mg/dL (0.2-1.3); Blood Urea Nitrogen 18 mg/dL (9-20); Calcium 8.6 mg/dL (8.4-10.2); Carbon Dioxide 30 mmol/L (22-32); Chloride 107 mmol/L (98-107); Estimated Glomerular Filt Rate > 60 mL/min (>60); Globulin 2.4 g/dL (1.7-4.1); Glucose 125 mg/dL (80-110); HEMOLYSIS < 15 (0-50); Lipase 147 U/L (23-300); Potassium 3.9 mmol/L (3.4-5.1); Sodium 138 mmol/L (137-145); Total Protein 6.1 g/dL (6.3-8.2)
[2024-04-29 04:26] LABS: Troponin I 0.014 ng/mL (0.01-0.034)
[2024-04-29] MEDS: MAG HYDROX/ALUMINUM/SIMETH SUS 20 ML, LIDOCAINE VISCOUS 2% 15 ML PO (04:27)
[2024-04-29] MEDS: PANTOPRAZOLE 40 MG VIAL IV (04:28)
== END 2024-04-29 06:11 | disposition home or self-care (01) ==
PROVIDERS: Emergency Provider Emergency Medicine; Family Provider Family Medicine; PCP Family Medicine
DX: R10.13 Epigastric pain (principal)
CPT/HCPCS: 36415; 74177; 80053; 82550; 83690; 84484; 85025; 93005; 96374; 99284; C9113; Q9967

== ENCOUNTER → 2024-05-04 14:13 | Outpatient (CLI) | payer MEDICARE, BC, SELFPAY ==
--- NOTE | 2024-05-04 14:15 | DI.US.S_ITS ---
PROCEDURE: US ABDOMEN COMPLETE INDICATIONS: INTERMITTENT EPIGASTRIC PAIN/MELENA DURING PAIN TECHNIQUE: Real-time scanning was performed of the abdominal and retroperitoneal organs, with image documentation. COMPARISON: None. FINDINGS: Suboptimal evaluation due to bowel gas. Liver: Liver is normal in size and homogeneous in echotexture. Gallbladder: No stones. No wall thickening. Biliary ducts: Intrahepatic bile ducts are non-dilated. Extrahepatic bile ducts not well visualized due to overlying bowel gas. Pancreas: Visualized portions of the pancreas are sonographically normal. Spleen: Spleen is normal in size and homogeneous in echotexture. Kidneys: Kidneys are normal in size and echotexture. Right kidney measures 11 cm long; left kidney measures 10.4 cm long. No hydronephrosis or nephrolithiasis. No solid masses. Aorta: Visualized aorta is normal in caliber at less than 3 cm. Iliacs: Proximal common iliac arteries are normal in caliber at less than 2.5 cm. IVC: Intrahepatic inferior vena cava is patent. Miscellaneous: No free abdominal fluid. IMPRESSION: Suboptimal evaluation due to bowel gas. No findings to explain the patient's abdominal pain. No gallbladder pathology. Dictated by: Aidan Shahid M.D. on 05/04/2024 at 17:01 Approved by: Aidan Shahid M.D. on 05/04/2024 at 17:02
== END ==
PROVIDERS: Family Provider Family Medicine; PCP Family Medicine; Referring Provider Internal Medicine Gastroenterology; Visit Provider Internal Medicine Gastroenterology
DX: K92.1 Melena (principal); R10.13 Epigastric pain
CPT/HCPCS: 76700

== ENCOUNTER → 2024-05-04 14:16 | Outpatient (CLI) | payer MEDICARE, BC, SELFPAY ==
--- NOTE | 2024-05-04 14:17 | DI.CT.S_ITS ---
PROCEDURE: CT CHEST WO CON INDICATIONS: LUNG NODULE TECHNIQUE: Noncontrast 5 mm thick sections acquired from the pulmonary apices to the posterior costophrenic angles. 1 mm lung window, 5 mm thick coronal and sagittal and 7 mm axial MIP reformats were then acquired. For radiation dose reduction, the following was used: automated exposure control, adjustment of mA and/or kV according to patient size. COMPARISON: [facility], CT, CT ABDOMEN PELVIS W CON, 11/23/2023, 10:14. [facility], CT, CT ABDOMEN PELVIS W CON, 04/29/2024, 4:27. FINDINGS: Image quality: Diagnostic. Lower Neck: No enlarged lymph nodes. Thyroid: No thyroid nodules which require sonographic follow up, per consensus guidelines. Axillae: No enlarged lymph nodes. Chest Wall: Unremarkable. Bones: Unremarkable. Lungs and Pleura: No pneumothorax or pleural effusions. Multiple solid pulmonary nodules. Examples include: -stable 7 x 4 millimeters solid nodule, right middle lobe (series 3, image 193). -stable 4 millimeter peribronchial nodule, right lower lobe (series 3, image 217). -stable 4 millimeters solid nodule, left lower lobe (series 3, image 206). Heart: Heart size is normal. No pericardial effusion. Moderate coronary artery calcifications for age. Thoracic Vessels: The aorta and pulmonary arteries demonstrate normal size. Mediastinum and Emily: No enlarged lymph nodes. Esophagus: No wall thickening. No hiatal hernia. Upper Abdomen: Visualized upper abdomen solid organs and bowel loops appear normal. IMPRESSION: Stable solid pulmonary nodules in the lung bases. Consider 12 month follow-up as 11/23/2023 if at high risk for malignancy, per Fleischner society guidelines. Dictated by: Aidan Shahid M.D. on 05/04/2024 at 19:41 Approved by: Aidan Shahid M.D. on 05/04/2024 at 19:49
== END ==
PROVIDERS: Family Provider Family Medicine; PCP Family Medicine; Referring Provider Family Medicine; Visit Provider Family Medicine
DX: R91.8 Other nonspecific abnormal finding of lung field (principal); K92.1 Melena; R10.13 Epigastric pain; I25.10 Atherosclerotic heart disease of native coronary artery without angina pectoris
CPT/HCPCS: 71250; 76700